=== PATIENT | male | born 1975 | race Caucasian/White ===

== ENCOUNTER 2020-12-22 22:48 | Emergency (ER) | payer BC ==
[~2020-12-22] VITALS: Ht 182.9 cm; Wt 81.7 kg
[2020-12-22] MEDS ORDERED: ADDERALL 30 MG30 MG PO (23:13)
[2020-12-22] MEDS ORDERED: GABAPENTIN100 MG PO (23:14)
[2020-12-22] MEDS ORDERED: TRAZODONE HCL100 MG PO (23:14)
[2020-12-22] MEDS ORDERED: FOLBIC RF TABL1 EACH PO (23:15)
[2020-12-22] MEDS ORDERED: METHOCARBAMOL500 MG PO (23:15)
--- OUTSIDE RECORDS SUMMARY | 2020-12-23 01:24 | XMS ---
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 Caitlyn has no Care Guidelines for this patient. Jack VISIT COUNT (12 MO.) 1 RAYMOND Weiss TOTAL 1 NOTE: Visits indicate total known visits. ED/C VISIT TRACKING (12 MO.) 12/22/2020 22:49 RAYMOND [facility] [place] TYPE: Emergency COMPLAINT: - CHEST PAIN, DIZZINESS INPATIENT VISIT TRACKING (12 MO.) No inpatient visits to display in this time frame [email or web address]
--- NOTE | 2020-12-24 07:29 | EKG ---
[facility] [address] [facility] [place] [address] Signed Normal sinus rhythm Possible Left atrial enlargement Incomplete right bundle branch block Left ventricular hypertrophy Abnormal ECG No previous ECGs available Confirmed by OMAIRA SÁNCHEZ MD ([id number]) on 12/24/2020 7:28:54 AM Electronically Signed By: OMAIRA SÁNCHEZ MD 12/24/20 0729 PATIENT NAME: SLYURIELTANYADILAN COCHRAN Electrocardiogram DATE OF : 75 PHYSICIAN: OMAIRA SÁNCHEZ MD REPORT #: [id number] REPORT IS CONFIDENTIAL AND NOT TO BE RELEASED WITHOUT AUTHORIZATION
== END 2020-12-23 00:45 | disposition home or self-care (01) ==
LOC: ED 22:48
DX: M79.602 Pain in left arm (principal); Z87.891 Personal history of nicotine dependence; Z79.899 Other long term (current) drug therapy
CPT/HCPCS: 71045; 80053; 83735; 84443; 84484; 85025; 93005; 93010; 99284-25